=== PATIENT | male | born 1995 | race Native Hawaiian/Other Pacific Islander ===

== ENCOUNTER 2016-10-16 09:48 | Outpatient (CLI) | payer BC ==
[2016-10-16 10:08] LABS: PLATELET COUNT 247 K/uL (142-355)
[2016-10-16 10:52] LABS: POTASSIUM 3.9 mmol/L (3.6-5.2); SODIUM 138 mmol/L (136-145)
== END 2016-10-16 10:30 | disposition home or self-care (01) ==
LOC: LABW 09:48
PROVIDERS: Internal Medicine
DX: G44.84 Primary exertional headache (principal)
CPT/HCPCS: 36415; 80053; 85027; 85651; 86140

== ENCOUNTER 2016-10-23 07:41 | Outpatient (CLI) | payer BC | END 2016-10-23 19:24 | disposition home or self-care (01) | LOC: MRI 07:41 | DX: G44.84 Primary exertional headache (principal); H53.8 Other visual disturbances ==

== ENCOUNTER 2016-12-25 07:57 | Outpatient (CLI) | payer BC | END 2016-12-25 19:10 | LOC: MRI 07:57 | DX: G44.84 Primary exertional headache (principal) ==

== ENCOUNTER 2020-10-26 08:03 | Outpatient (CLI) | payer BC ==
[2020-10-26 08:33] LABS: PLATELET COUNT 231 K/uL (142-355)
[2020-10-26 08:56] LABS: POTASSIUM 4.1 mmol/L (3.6-5.2)
== END 2020-10-26 21:41 | disposition home or self-care (01) ==
LOC: LABW 08:03
PROVIDERS: ATTEND Internal Medicine
DX: R35.0 Frequency of micturition (principal)
CPT/HCPCS: 36415; 80053; 83036; 83735; 84439; 84443; 84588; 85027

== ENCOUNTER 2021-01-09 08:10 | Outpatient (CLI) | payer BC | END 2021-01-09 19:17 | disposition home or self-care (01) | LOC: CT 08:10 | PROVIDERS: ATTEND Internal Medicine | DX: R20.2 Paresthesia of skin (principal); H53.9 Unspecified visual disturbance ==

== ENCOUNTER 2021-03-27 15:07 | Outpatient (CLI) | payer BC | END 2021-03-27 21:58 | disposition home or self-care (01) | LOC: MRI 15:07 | PROVIDERS: ATTEND Psychiatry & Neurology Neurology | DX: H53.9 Unspecified visual disturbance (principal); R20.2 Paresthesia of skin; R13.10 Dysphagia, unspecified | CPT/HCPCS: A9576 ==

== ENCOUNTER 2021-03-31 10:24 | Emergency (ER) | payer BC ==
[~2021-03-31] VITALS: Ht 172.7 cm; Wt 81.6 kg
[2021-03-31 10:41] VITALS: TEMP 98.1
[2021-03-31 12:14] LABS: PLATELET COUNT 279 K/uL (142-355)
[2021-03-31 12:18] LABS: POTASSIUM 4.2 mmol/L (3.6-5.2)
[2021-03-31 12:30] LABS: PARTIAL THROMBOPLASTIN TIME 23.5 SECONDS (24.5-33.6)
[2021-03-31 14:45] VITALS: BP 141/87
== END 2021-03-31 14:54 | disposition home or self-care (01) ==
LOC: ED 10:24
PROVIDERS: Family Medicine
DX: R00.0 Tachycardia, unspecified (principal); I10 Essential (primary) hypertension; F41.8 Other specified anxiety disorders
CPT/HCPCS: 36415; 80053; 80307; 81000; 82550; 84484; 85027; 85610; 85730; 96374; 99284; J3490

== ENCOUNTER 2021-09-28 13:46 | Outpatient (CLI) | payer BC | END 2021-09-28 21:00 | disposition home or self-care (01) | LOC: MRI 13:46 | PROVIDERS: ATTEND Psychiatry & Neurology Neurology | DX: R90.82 White matter disease, unspecified (principal); H53.9 Unspecified visual disturbance; R20.2 Paresthesia of skin; R13.10 Dysphagia, unspecified | CPT/HCPCS: A9576 ==